=== PATIENT | male | born 1950 | race Native Hawaiian/Other Pacific Islander ===

== ENCOUNTER 2019-10-22 15:00 | Outpatient (CLI) | payer OTHER | END 2019-10-22 19:30 | disposition home or self-care (01) | LOC: RAD 15:00 | DX: R05 Cough (principal); J40 Bronchitis, not specified as acute or chronic ==

== ENCOUNTER 2021-07-18 09:52 | Outpatient (CLI) | payer OTHER | END 2021-07-18 21:07 | disposition home or self-care (01) | LOC: RAD 09:52 | PROVIDERS: ATTEND Nurse Practitioner Family | DX: R05.9 Cough, unspecified (principal) ==